=== PATIENT | female | born 1960 | race Caucasian/White ===

== ENCOUNTER → 2021-01-27 14:00 | Outpatient (CLI) | payer BC, SELFPAY | PROVIDERS: Visit Provider Internal Medicine Adolescent Medicine | DX: R35.0 Frequency of micturition (principal) | CPT/HCPCS: 87086 ==

== ENCOUNTER → 2021-11-24 12:15 | Outpatient (CLI) | payer BC, SELFPAY ==
[2021-11-30 17:12] LABS: Chloride 105 mmol/L (98-107)
[2021-11-30 17:13] LABS: Potassium 4.6 mmoL/L (3.5-5.1); Sodium 140 mmol/L (136-145)
[2021-11-30 17:15] LABS: Alanine Aminotransferase 30 U/L (12-78); Albumin Level 4.3 g/dl (3.5-5.0); Albumin/Globulin Ratio 1.5 (1.1-1.8); Alkaline Phosphatase 117 U/L (38-126); Anion Gap 15.6 mEq/L (5-15); Aspartate Amino Transferase 33 U/L (14-36); Bilirubin,Total 0.3 mg/dl (0.2-1.3); Blood Urea Nitrogen 18 mg/dl (7-17); Calcium 9.6 mg/dl (8.4-10.2); Carbon Dioxide 24 mmol/L (22.0-30.0); Estimated Glomerular Filt Rate 86 ml/min (>60); GFR (African American) 104 ML/MIN (>60); Globulin 2.8 g/dL (1.3-3.2); Glucose 121 mg/dl (74-100); Total Protein,Serum 7.1 g/dl (6.3-8.2)
[2021-11-30 19:40] LABS: Triiodothryronine (T3) Uptake 36 % (23.5-40.5)
[2021-11-30 19:41] LABS: Free Thyroxine Index 3.2 ug/dL (5.93-13.13)
[2021-11-30 19:54] LABS: Thyroid Stimulating Hormone 0.94 uIU/mL (0.465-4.68)
== END ==
PROVIDERS: PCP Internal Medicine Adolescent Medicine; Visit Provider Internal Medicine Adolescent Medicine
DX: E03.9 Hypothyroidism, unspecified (principal)
CPT/HCPCS: 80053; 84436; 84443; 84479

== ENCOUNTER → 2021-11-25 08:02 | Outpatient (CLI) | payer BC, SELFPAY ==
[2021-11-24 20:32] LABS: Vitamin B12 314 pg/mL (239-931)
[2021-11-24 21:11] LABS: 25-OH Vitamin D, Total 73.2 ng/mL (30-100)
== END ==
PROVIDERS: PCP Internal Medicine Adolescent Medicine; Referring Provider Internal Medicine Adolescent Medicine; Visit Provider Internal Medicine Adolescent Medicine
DX: E03.9 Hypothyroidism, unspecified (principal); L65.9 Nonscarring hair loss, unspecified
CPT/HCPCS: 82306; 82607

== ENCOUNTER → 2023-01-08 16:52 | Outpatient (CLI) | payer BC, SELFPAY ==
[2023-01-08 16:26] LABS: Basophils % 0.6 % (0.1-2.0); Eosinophils # 0.3 K/mm3 (0.0-0.4); Eosinophils % 3.9 % (0.1-12.0); Hematocrit 44.4 % (37.0-47.0); Hemoglobin 14.2 g/dL (12.2-16.2); Lymphocytes % 26.8 % (10-50); Mean Corpuscular Volume 96.9 fl (81-99); Mean Platelet Volume 9.4 fl (7.4-10.4); Monocytes # 0.5 K/mm3 (0.1-1.0); Monocytes % 6.5 % (1.7-9.3); Neutrophils # 4.6 K/mm3 (1.8-7.8); Neutrophils % 62.3 % (37.0-80.0); Platelet Count 374 K/mm3 (142-424); Red Blood Count 4.58 M/mm3 (4.20-5.40); Red Cell Distribution Width 13.3 % (11.5-17.5); White Blood Count 7.4 K/mm3 (4.8-10.8)
[2023-01-08 16:43] LABS: Alanine Aminotransferase 27 U/L (12-78); Albumin Level 4.3 g/dl (3.5-5.0); Albumin/Globulin Ratio 1.6 (1.1-1.8); Alkaline Phosphatase 108 U/L (38-126); Anion Gap 10.8 mEq/L (5-15); Aspartate Amino Transferase 33 U/L (14-36); Bilirubin,Total 0.4 mg/dl (0.2-1.3); Blood Urea Nitrogen 21 mg/dl (7-17); Calcium 9.3 mg/dl (8.4-10.2); Carbon Dioxide 29 mmol/L (22.0-30.0); Chloride 104 mmol/L (98-107); Estimated Glomerular Filt Rate 85 ml/min (>60); GFR (African American) 103 ML/MIN (>60); Globulin 2.7 g/dL (1.3-3.2); Glucose 97 mg/dl (74-100); Potassium 4.8 mmoL/L (3.5-5.1); Sodium 139 mmol/L (136-145)
[2023-01-08 17:14] LABS: Thyroid Stimulating Hormone 0.16 uIU/mL (0.465-4.68)
== END ==
PROVIDERS: PCP Family Medicine; Visit Provider Family Medicine
DX: E03.9 Hypothyroidism, unspecified (principal); F41.9 Anxiety disorder, unspecified
CPT/HCPCS: 80053; 84443; 85025

== ENCOUNTER → 2023-04-02 13:50 | Outpatient (CLI) | payer BC, SELFPAY | PROVIDERS: PCP Nurse Practitioner Family; Visit Provider Nurse Practitioner Family | DX: R35.0 Frequency of micturition (principal); B96.89 Other specified bacterial agents as the cause of diseases classified elsewhere | CPT/HCPCS: 87086 ==

== ENCOUNTER → 2023-04-24 07:39 | Outpatient (CLI) | payer BC, SELFPAY ==
[2023-04-24 16:44] LABS: C-Reactive Protein 7.5 mg/L (0-4)
[2023-04-24 16:56] LABS: T4 (Thyroxine) 8.1 ug/dl (5.53-11.0); Triiodothryronine (T3) Uptake 37 % (23.5-40.5)
[2023-04-24 17:04] LABS: Erythrocyte Sedimentation Rate 13 mm/hr (0-30)
[2023-04-24 17:05] LABS: Free T4 (Free Thyroxine) 1.44 ng/dl (0.78-2.19)
[2023-04-24 17:10] LABS: Thyroid Stimulating Hormone 0.25 uIU/mL (0.465-4.68)
[2023-04-27 21:20] LABS: Antinuclear Antibodies (ANA) Negative
== END ==
PROVIDERS: PCP Nurse Practitioner Family; Visit Provider Nurse Practitioner Family
DX: E03.9 Hypothyroidism, unspecified (principal); M79.641 Pain in right hand; M79.642 Pain in left hand; M25.541 Pain in joints of right hand; M25.542 Pain in joints of left hand
CPT/HCPCS: 84436; 84439; 84443; 84479; 85651; 86038; 86140

== ENCOUNTER 2023-06-13 09:44 | Outpatient (CLI) | payer BC, SELFPAY ==
[2023-06-13 18:02] LABS: Thyroid Stimulating Hormone 0.65 uIU/mL (0.465-4.68)
== END 2023-06-13 23:59 ==
LOC: LAB.DROPOF 06-14 09:45
PROVIDERS: PCP Nurse Practitioner Family; Visit Provider Family Medicine
DX: E03.9 Hypothyroidism, unspecified (principal)
CPT/HCPCS: 84443

== ENCOUNTER 2023-09-06 16:34 | Outpatient (CLI) | payer BC, SELFPAY ==
[2023-09-06 17:10] LABS: Thyroid Stimulating Hormone 0.48 uIU/mL (0.465-4.68)
== END 2023-09-06 23:59 ==
LOC: LAB.DROPOF 16:35
PROVIDERS: PCP Family Medicine; Visit Provider Family Medicine
DX: E03.9 Hypothyroidism, unspecified (principal)
CPT/HCPCS: 84443

== ENCOUNTER 2023-12-06 10:29 | Outpatient (CLI) | payer BC, SELFPAY ==
[2023-12-06 18:42] LABS: Thyroid Stimulating Hormone 0.87 uIU/mL (0.465-4.68)
== END 2023-12-06 23:59 | disposition home or self-care (01) ==
LOC: LAB.DROPOF 12-07 10:29
PROVIDERS: PCP Nurse Practitioner Family; Visit Provider Nurse Practitioner Family
DX: E03.9 Hypothyroidism, unspecified (principal)
CPT/HCPCS: 84443

== ENCOUNTER 2024-05-29 09:03 | Outpatient (CLI) | payer BC, SELFPAY ==
[2024-05-29 16:51] LABS: White Blood Count 9.1 K/mm3 (4.8-10.8)
[2024-05-29 16:52] LABS: Hematocrit 42.6 % (37.0-47.0); Lymphocytes % 21.4 % (10-50); Mean Corpuscular HGB Conc 32.9 g/dL (31.8-35.4); Mean Corpuscular Hemoglobin 31.5 pg (27.0-31.2); Mean Corpuscular Volume 95.7 fl (81-99); Mean Platelet Volume 10.1 fl (7.4-10.4); Neutrophils % 68.3 % (37.0-80.0); Platelet Count 334 K/mm3 (142-424); Red Blood Count 4.45 M/mm3 (4.20-5.40); Red Cell Distribution Width 13.7 % (11.5-17.5)
[2024-05-29 16:53] LABS: Basophils # 0.1 K/mm3 (0-0.2); Basophils % 0.8 % (0.1-2.0); Eosinophils # 0.4 K/mm3 (0.0-0.4); Eosinophils % 4.5 % (0.1-12.0); Lymphocytes # 1.9 K/mm3 (0.7-4.5); Monocytes # 0.4 K/mm3 (0.1-1.0); Monocytes % 4.8 % (1.7-9.3); Neutrophils # 6.2 K/mm3 (1.8-7.8)
[2024-05-29 17:30] LABS: Albumin Level 4.4 g/dl (3.5-5.0); Chloride 112 mmol/L (98-107); Potassium 4.4 mmoL/L (3.5-5.1); Sodium 135 mmol/L (136-145)
[2024-05-29 17:33] LABS: Alanine Aminotransferase 24 U/L (12-78); Albumin/Globulin Ratio 1.8 (1.1-1.8); Alkaline Phosphatase 111 U/L (38-126); Anion Gap 10.4 mEq/L (5-15); Aspartate Amino Transferase 34 U/L (14-36); Bilirubin,Total 0.6 mg/dl (0.2-1.3); Blood Urea Nitrogen 17 mg/dl (7-17); Carbon Dioxide 17 mmol/L (22.0-30.0); Cholesterol 255 mg/dl (140-200); Estimated Glomerular Filt Rate 64 ml/min (>60); GFR (African American) 77 ML/MIN (>60); Globulin 2.5 g/dL (1.3-3.2); Total Protein,Serum 6.9 g/dl (6.3-8.2); Triglycerides 106 mg/dl (30-150); VLDL Cholesterol 21 mg/dL (0-40)
[2024-05-29 17:34] LABS: Calcium 9.5 mg/dl (8.4-10.2); Chol/HDL Ratio 2.7 (1-3.5); Glucose 131 mg/dl (74-100); HDL Cholesterol 96 mg/dl (40-60)
[2024-05-29 17:45] LABS: Direct LDL Cholesterol 138.92 mg/dL (100-129)
[2024-05-29 18:03] LABS: Thyroid Stimulating Hormone 0.97 uIU/mL (0.465-4.68)
[2024-05-29 18:14] LABS: HIV Combo NEGATIVE (Negative)
[2024-05-30 10:24] LABS: HCV Ab Non Reactive (Non Reactive)
[2024-05-30 10:36] LABS: Hemoglobin A1C 5.1 % (4.0-6.0)
== END 2024-05-29 23:59 | disposition home or self-care (01) ==
LOC: LAB.DROPOF 05-30 09:31
PROVIDERS: PCP Family Medicine; Visit Provider Family Medicine
DX: E03.9 Hypothyroidism, unspecified (principal); Z11.59 Encounter for screening for other viral diseases; R73.09 Other abnormal glucose
CPT/HCPCS: 80050; 80053; 80061; 83036; 84443; 85025; 86803; 87389

== ENCOUNTER 2024-11-21 11:25 | Outpatient (CLI) | payer BC, SELFPAY ==
--- OUTSIDE RECORDS SUMMARY | 2024-11-24 11:28 | XMS_ITS ---
Author Organization [facility] Address [address] [id number] Care Team Providers Care Communications Tower Technician Name Role Phone Edwina Su Michelle PAYNE Primary Care Provider [phone] Active Problems Problem Noted Date Diagnosed Date Hiatal hernia with gastroesophageal reflux 12/31 Hiatal hernia 10/31/2023 Allergic rhinitis due to allergen 08/24/2023 Anxiety 08/24/2023 Gastroesophageal reflux disease 08/24/2023 Hypothyroidism 07/18/2023 Irritation of vulva 10/09/2022 Non-Hodgkin's lymphoma 06/11/2004 Overview (08/24/2023): remission Current Treatment and Therapy Plans No current plan information found. Past Treatment and Therapy Plans No past plan information found. Lifetime Dose Tracking * Chemical Lifetime Dose Automatic Entry Manual Entr y Fluoro Time 6.6 minutes 6.6 minutes 0 minutes Air Kerma 68.4 mGy 68.4 mGy 0 mGy
--- OUTSIDE RECORDS SUMMARY | 2024-11-24 11:28 | XMS_ITS | Continuity of Care Document ---
Author Organization [facility] Address [address] [place] [id number] Assessment No assessment recorded. Plan of Treatment Reminders Order Date Submit Date Provider Last Modified By Organization Details Last Modified Time Details Appointments FOLLOW UP [facility] 2024 08:40A M RADHA SCHULTZ NP Not available Not available Not available Lab surgic al pathol ogy study 2024 025 [facility], [address] [place] [address], [phone], 10/09/2024 10:50:03 Referral None record ed. Procedures None record ed. Surgeries None record ed. Imaging None record ed. Medication Orders None record ed. Patient TargetsNo targets recorded. Patient InstructionsNo instructions recorded. Reason for Referral None Reported. Problems Name Problem SNOMED Code Status Onset Date Resolution Date Notes Provider Name and Address Organization Details Recorded Time Hypothyroidism 74620526 Active 2023 Vibha Proctor [facility] 09:33:22 Notes:Non-hagkins lymphoma 2 006 Problem Notes None recorded. Procedures Surgical History Date Name Laterality Status Provider Name and Address Organization Details Recorded Time 10/09/19 25 DAK - Cryo AK completed Vibha Proctor [facility] 10/08/2024 08:44:30 10/09/19 25 DAK - Biopsy, Tangential completed Vibha Proctor [facility] 10/08/2024 08:44:27 04/16/20 24 DAK - ED&C; trunk,arm,leg completed Bertha Guan [facility] 04/16/2024 10:41:02 02/13/20 24 Biopsy Skin Lesion; Tangential completed [facility] 02/13/2024 09:46:57 02/13/20 24 Destruction Premalignant Lesion(s) completed [facility] 02/13/2024 09:47:47 02/13/20 24 Destruction BN Lesions completed [facility] 02/13/2024 09:47:24 07/18/19 24 Biopsy Skin Lesion; Tangential completed [facility] 07/18/2023 09:56:32 07/18/19 24 Destruction Premalignant Lesion(s) completed [facility] 07/18/2023 09:58:25 hernia repair completed Maria Dolores Sweet [facility] 10/08/2024 08:01:47 Imaging Results None recorded. Procedure Notes None recorded. Medical Equipment None Reported. Allergies Allergen ID Allergen Name Allergen Category Reaction Reaction Severity Criticality Documentation Date Start Date Code Code System Note Provider Name and Address Organization Details Recorded Time 905906 Substance with sulfonami de structure and antibacte rial mechanism of action (substanc e) medicatio n Not available Not available Not available 02/13/2024 79595 8003 SNOMED Vibha Hitesh [facility] 09:27:31 Medications Name Sig Start Date Stop Date Status Note LastModified by Organization Details LastModified Time Prozac active Not Available Not Availa ble Not Available Synthroid 2023 completed Not Available Not Available Not Available Claritin-D 2023 completed Not Available Not Available Not Available Vitals None Recorded Social History Question Answer Notes LastModified by Organizat ion Details LastModified Time Tobacco Smoking Status Never [facility]oker [facility] 09:34:22 Sunscreen Use? No [email or web address] Informatio n not available 07/18/2023 Tanning Bed Use Yes Current User [email or web address] Information not available 07/18/2023 Are You Or Trying To Become ? No [email or web address] Information not available 07/18/2023 Are You On Control? No [email or web address] Information not available 07/18/2023 Are You ? No [email or web address] Information not available 07/18/2023 Sex: Unknown Functional Status Question Answer Note LastModified by Organizat ion Details LastModified Time What is your level of alcohol consumption? Moderate about 2 every evening [email or web address] Information not available 07/18/2023 Mental Status None recorded. Family History Relationship Description Onset Age of this Age Resolved Age Notes LastModified by Organization Details LastModified Time Father No current problems or disability Not available 07/18 09:34:01 Mother No current problems or disability [email or web address] Not available 07/18 09:34:02 Medical History Condition Response Skin Cancer Y Basal Cell Carcinoma Y Melanoma Y Gynecological HistoryNo gynecological history recorded. Obstetrics History GPAL:G 0 P 0 0 0 0 Past Encounters Encounter ID Performer Location Encounter Start Date Encounter Closed Date Diagnosis/Indication Diagnosis SNOMED-CT Code Diagnosis ICD10 Code Diagnosis Note [id number] TONE Victoria APRN [address] [id number] 10/08/2024 07:54:45 10/08/2024 08:53:44 History of malignant neoplasm of skin 205802648 Z85.828 Most recent NMSC 02/2024 - No evidence of recurrence today- Call with any worrisome lesions or if treated lesions return- Return at regular intervals for skin exam as recommende d Multiple b enign melanocytic nevi 016964618 D22.5 - Benign moles seen on exam today - SPF 30 or higher broad-spec trum sunscreen recommende d with re-applica tion every 2 hours - Discussed sun protection measures, including wide-brimm ed hat, sun-protec tive clothing, and avoidance of sun during peak hours of 10am-4pm - Avoid tanning beds as these can increase the chances of all 3 types of skin cancer - Instructed to monitor for changes and to call us for appointmen t with any changing or worrisome lesions Seborrheic keratosis [id number] L82.1 - Benign overgrowth s of skin - Hereditary Senile angioma 8503983 I 78.1 - Benign blood vessel growths - Hereditary Solar lentigo 83414303 L 81.4 - Benign brown spots - Sun-induce d History of Malignant melanoma 061596100 Z85.820 last MM - 2021 Patient is still an avid tanning bed user. Reiterate the increase risk of getting another MM since she has already had one. Again encouraged her to stop using. Reiterated need for annual eye exams, sun protection , regular self-exam, and skin exams for 1st degree relatives as melanoma. Can have a genetic tendency. Alert provider to any new or changing symptoms so you may be evaluated for internal spread of melanoma. Call if any new spots you are worried about. Denies unexplaine d weight loss, night sweats, vision change, severe headaches, and SOB. Neoplasm o f uncertain behavior of skin 49078042 D48.5 Recommend blade biopsy. Risks, benefit, and procedure discussed with patient. Consent obtained. Discussed the biopsy only takes the top layer of the lesion for testing. This does NOT treat the skin cancer if it is one. Advised they would need to return for more treatment given the type and depth of the skin cancer when the results come in. Multiple a ctinic keratoses [id number] L57.0 Actinic keratoses are precancero us lesions that may progress to squamous cell carcinoma if untreated. UV light and genetics may increase risk. Treated lesions should blister, scab over, and heal within a few weeks. If treated lesion(s) does not resolve within 1-2 months, patient agrees to follow up for re-evaluat ion. Health Concerns Section Related Observation LastModified by Organization Detai ls LastModified Time None Recorded Concern Status LastModified by Organization Details LastModified Time None Recorded Payers Encounter Date Sequence Insurance Name Policy Number Policy Patel Covered Member ID Patel Member ID Guarantor Name 10/08/2024 1 [employer] [id number] 1 No Rankin [id number] AB No Rankin Notes Date Note Type Note Provider Name and Address Organization Details Recorded Time 10/08/2024 text/html Here for a full body skin examination - last skin check: 02/2024 - history of skin cancer - MM and BCC - last skin cancer was in: 02/2024 - spots of concern today: Bilateral lower legs - Is pt still going to the tanning bed? 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, [phone], [facility] 10/09/2024 10:46:58 OBGyn Episode No OBEpisode recorded.
--- OUTSIDE RECORDS SUMMARY | 2024-11-24 11:28 | XMS_ITS | Data Portability ---
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 Reviewed calcium needs, exercise, and prevention of osteoporosis . Periodic colonoscopy screening recommended . Reviewed normal menopause and menopausal symptoms . Mammogram recommended yearly . Not available 08/22/2021 09:03:12 10/09/2022 10/09/2022 BSE reviewed and recommended . Reviewed calcium needs, exercise, and prevention of osteoporosis . Periodic colonoscopy screening recommended . Reviewed normal menopause and menopausal symptoms . Mammogram recommended yearly . [email or web address] Not available 10/09/2022 16:30:05 Plan of Treatment Reminders Order Date Submit Date Provider Last Modified By Organization Details Last Modified Time Details Appointments None recorded. Lab culture, urine 2023 024 ANNEL [facility], [address], [place], [address], 4 16:14:15 urinalysis, dipstick 2023 024 [facility], [address] [place] [address] , [place], [address], 4 14:31:57 HSV (1+2) DNA, qual, PCR, unspecified specimen 2023 024 ANNEL [facility], [address], [address], [place], [address], 4 16:14:14 cytology report, thin prep, smear or scraping, cervical or vaginal 2022 023 ANNEL [facility], [address], [address], [place], [address], 3 12:09:13 vitamin B12 + folate, serum or blood 2021 022 ANNEL [facility], [address], [address], [place], [address], 2 16:11:30 ferritin, serum or plasma 2021 022 ANNEL [facility], [address], [address], [place], [address], 2 16:11:32 vitamin D, 25-hydroxy, total, serum 2021 022 ANNEL [facility], [address], [address], [place], [address], 2 16:11:31 testosteron e, free + total, serum 2021 022 ANNEL [facility], [address], [address], [place], [address], 2 16:11:30 CBC w/ auto diff 2021 022 ANNEL [facility], [address], [address], [place], [address], 2 16:11:29 iron + total iron-bindin g capacity (TIBC), serum 2021 022 ANNEL [facility], [address], [address], [place], [address], 2 16:11:29 TSH + free T4, serum 2021 022 ANNEL [facility], [address], [address], [place], [address], 16:11:28 methylmalon ate, QN, serum or plasma 2021 [facility], [address], [address], [place], [address], 16:11:31 pap, IG + HPV 2021 [place] [facility], [address], [address], [place], [address], 12:12:30 Referral None recorded. Procedures None recorded. Surgeries None recorded. Imaging None recorded. Medication Orders fluconazole 150 mg tablet [address], [address], 4 14:31:48 lidocaine 5 % topical ointment [address], [address], 4 14:31:48 valacyclovi r 500 mg tablet [address], [address], 4 11:15:35 clobetasol 0.05 % topical ointment 2021 [email or web address] [id number] [employer], [address] [place] [address], [id number], 3 16:21:09 Patient TargetsNo targets recorded. Patient Instructions Encounter Date Encounter Id Patient Instructions Last Modified By Organization Details Last Modified Time 08/22/2021 [id number] medical record request* - Please send a copy of pt's last colonoscopy and recommendations ANNEL Not available 08/23/2021 13:25:06 A healthy lifestyle: care instructions [email or web address] Not available 08/22/2021 09:09:16 11/30/2021 [id number] follow up colin sousa lab work results [email or web address] Not available 11/30/2021 12:23:51 02/25/2024 [id number] Continue Macrobi d and Metrogel Start valacyclovir and lidocaine cream. Will call with results. [email or web address] Not available 02/25/2024 14:35:14 Reason for Referral None Reported. Results Created Date Observation Date Name Description Value Unit Range Abnormal Flag Note LastModifiedBy Organization Detail LastModifiedTime 08/23/1908/24/2021 IGP, APT HPV,R FX 16/18 ,45 HPV aptima Negati ve negati ve This nucle ic acid ampli ficat ion test detec ts fourt een high- risk HPV types (16,1 8,31, 33,35 ,39,4 5,51, 52,56 ,58,5 9,66, 68) witho ut diffe renti ation . Not Available [facility] ([facility]) [address] [facility], [place], [address], 08/26/2021 12:12:30 08/23/1908/26/2021 IGP, APT HPV,R FX 16/18 ,45 diagnosis: Commen t NEGAT REJI FOR INTRA EPITH ELIAL LESIO N OR ANOOP ARAGON . Not Available [facility] ([facility]) [address] [facility], [place], [address], 08/26/2021 12:12:30 08/23/1908/26/2021 IGP, APT HPV,R FX 16/18 ,45 specimen adequacy: Commen t Satis facto ry for evalu ation . No endoc ervic al compo nent is ident ified . Not Available [facility] ([facility]) [address] [facility], [place], [address], 08/26/2021 12:12:30 08/23/1908/26/2021 IGP, APT HPV,R FX 16/18 ,45 clinician provided ICD10: Coby gaines Z12.4 Z11.3 Z01.4 19 Not Available [facility] ([facility]) [address] [place], [address], 08/26/2021 12:12:30 08/23/19 22 08/26/2021 IGP, APT HPV,R FX 16/18 ,45 performed by: Ashley Rushing Not Available [facility] ([facility]) [address] [place], [address], 08/26/2021 12:12:30 08/23/19 22 08/26/2021 IGP, APT HPV,R FX 16/18 ,45 . . Not Available [facility] ([facility]) [address] [place], [address], 08/26/2021 12:12:30 08/23/19 22 08/26/2021 IGP, APT HPV,R FX 16/18 ,45 note: Coby gaines The Pap smear is a scree roman test desig edison to aid in the detec tion of lottie ligna nt and malig nant condi tions of the uteri ne cervi x. It is not a diagn ostic proce dure and shoul d not be used as the sole means of detec ting cervi tonia cance r. Both false -posi tive and false -nega tive repor ts do occur . Not Available [facility] ([facility]) [address] [place], [address], 08/26/2021 12:12:30 08/23/19 22 08/26/2021 IGP, APT HPV,R FX 16/18 ,45 test methodology: Coby gaines This liqui d based ThinP rep(R ) pap test was scree edison with the use of an image guide melo martell. Not Available [facility] ([facility]) [address] [place], [address], 08/26/2021 12:12:30 12/01/19 22 12/01/2021 TSH+F REE T4 TSH 1.000 uIU/m L 0.450- 4.500 Not Available [facility] ([facility]) [address] [place], [address], 2021 16:11:28 12/01/19 22 12/01/2021 TSH+F REE T4 T4,free(dire ct) 1.27 NG/dL 0.82-1 .77 Not Available [facility] ([facility]) [address] [place], [address], 2021 16:11:28 12/01/19 22 12/01/2021 CBC WITH DIFFE RENTI AL/PL ATELE T WBC 8.3 x10e3 /uL 3.4-10 .8 Not Available [facility] ([facility]) [address] [place], [address], 2021 16:11:29 12/01/19 22 12/01/2021 CBC WITH DIFFE RENTI AL/PL ATELE T RBC 4.48 x10e6 /uL 3.77-5 .28 Not Available [facility] ([facility]) [address] [place], [address], 2021 16:11:29 12/01/19 22 12/01/2021 CBC WITH DIFFE RENTI AL/PL ATELE T hemoglobin 14.2 g/dL 11.1-1 5.9 Not Available [facility] ([facility]) [address] [place], [address], 2021 16:11:29 12/01/19 22 12/01/2021 CBC WITH DIFFE RENTI AL/PL ATELE T hematocrit 41.1 % 34.0-4 6.6 Not Available [facility] ([facility]) [address] [place], [address], 2021 16:11:29 12/01/19 22 12/01/2021 CBC WITH DIFFE RENTI AL/PL ATELE T MCV 92 fL 79-97 Not Available [facility] ([facility]) [address] [facility], [place], [address], 2021 16:11:29 12/01/19 22 12/01/2021 CBC WITH DIFFE RENTI AL/PL ATELE T MCH 31.7 pg 26.6-3 3.0 Not Available [facility] ([facility]) [address] [place], [address], 2021 16:11:29 12/01/19 22 12/01/2021 CBC WITH DIFFE RENTI AL/PL ATELE T MCHC 34.5 g/dL 31.5-3 5.7 Not Available [facility] ([facility]) [address] [facility], [place], [address], 2021 16:11:29 12/01/19 22 12/01/2021 CBC WITH DIFFE RENTI AL/PL ATELE T RDW 13.5 % 11.7-1 5.4 Not Available [facility] ([facility]) [address] [place], [address], 2021 16:11:29 12/01/19 22 12/01/2021 CBC WITH DIFFE RENTI AL/PL ATELE T platelets 338 x10e3 /uL 150-45 0 Not Available [facility] ([facility]) [address] [place], [address], 2021 16:11:29 12/01/19 22 12/01/2021 CBC WITH DIFFE RENTI AL/PL ATELE T neutrophils 64 % not estab. Not Available [facility] ([facility]) [address] [place], [address], 2021 16:11:29 12/01/19 22 12/01/2021 CBC WITH DIFFE RENTI AL/PL ATELE T lymphs 25 % not estab. Not Available [facility] ([facility]) [address] [facility], [place], [address], 2021 16:11:29 12/01/19 22 12/01/2021 CBC WITH DIFFE RENTI AL/PL ATELE T monocytes 6 % not estab. Not Available [facility] ([facility]) [address] [facility], [place], [address], 2021 16:11:29 12/01/19 22 12/01/2021 CBC WITH DIFFE RENTI AL/PL ATELE T eos 4 % not estab. Not Available [facility] ([facility]) [address] [facility], [place], [address], 2021 16:11:29 12/01/19 22 12/01/2021 CBC WITH DIFFE RENTI AL/PL ATELE T basos 1 % not estab. Not Available [facility] ([facility]) [address] [place], [address], 2021 16:11:29 12/01/19 22 12/01/2021 CBC WITH DIFFE RENTI AL/PL ATELE T immature cells CONVEX GRINDER Not Available [facility] ([facility]) [address] [place], [address], 2021 16:11:29 12/01/19 22 12/01/2021 CBC WITH DIFFE RENTI AL/PL ATELE T neutrophils (absolute) 5.3 x10e3 /uL 1.4-7. 0 Not Available [facility] ([facility]) [address] [place], [address], 2021 16:11:29 12/01/19 22 12/01/2021 CBC WITH DIFFE RENTI AL/PL ATELE T lymphs (absolute) 2.1 x10e3 /uL 0.7-3. 1 Not Available [facility] ([facility]) [address] [facility], [place], [address], 2021 16:11:29 12/01/19 22 12/01/2021 CBC WITH DIFFE RENTI AL/PL ATELE T monocytes(ab solute) 0.5 x10e3 /uL 0.1-0. 9 Not Available [facility] ([facility]) [address] [facility], [place], [address], 2021 16:11:29 12/01/19 22 12/01/2021 CBC WITH DIFFE RENTI AL/PL ATELE T eos (absolute) 0.3 x10e3 /uL 0.0-0. 4 Not Available [facility] ([facility]) [address] [place], [address], 2021 16:11:29 12/01/19 22 12/01/2021 CBC WITH DIFFE RENTI AL/PL ATELE T baso (absolute) 0.1 x10e3 /uL 0.0-0. 2 Not Available [facility] ([facility]) [address] [facility], [place], [address], 2021 16:11:29 12/01/19 22 12/01/2021 CBC WITH DIFFE RENTI AL/PL ATELE T immature granulocytes 0 % not estab. Not Available [facility] ([facility]) [address] [place], [address], 2021 16:11:29 12/01/19 22 12/01/2021 CBC WITH DIFFE RENTI AL/PL ATELE T immature grans (abs) 0.0 x10e3 /uL 0.0-0. 1 Not Available [facility] ([facility]) [address] [place], [address], 2021 16:11:29 12/01/19 22 12/01/2021 CBC WITH DIFFE RENTI AL/PL ATELE T NRBC CONVEX GRINDER Not Available [facility] ([facility]) [address] [place], [address], 2021 16:11:29 12/01/19 22 12/01/2021 CBC WITH DIFFE RENTI AL/PL ATELE T hematology comments: CONVEX GRINDER Not Available [facility] ([facility]) [address] [facility], [place], [address], 2021 16:11:29 12/01/19 22 12/01/2021 IRON AND TIBC iron bind.cap.(TI BC) 346 ug/dL 250-45 0 Not Available [facility] ([facility]) [address] [place], [address], 2021 16:11:29 12/01/19 22 12/01/2021 IRON AND TIBC UIBC 269 ug/dL 131-42 5 Not Available [facility] ([facility]) [address] [place], [address], 2021 16:11:29 12/01/19 22 12/01/2021 IRON AND TIBC iron 77 ug/dL 27-159 Not Available [facility] ([facility]) [address] [place], [address], 2021 16:11:29 12/01/19 22 12/01/2021 IRON AND TIBC iron saturation 22 % 15-55 Not Available [facility] ([facility]) [address] [place], [address], 2021 16:11:29 12/01/19 22 12/01/2021 VITAM IN B12 AND FOLAT E vitamin B12 330 pg/mL 232-12 45 Not Available [facility] ([facility]) [address] [place], [address], 2021 16:11:30 12/01/19 22 12/01/2021 VITAM IN B12 AND FOLAT E folate (folic acid), serum >20.0 NG/mL >3.0 A serum folat e kenneth ntrat ion of less than 3.1 ng/mL is consi dered to repre sent clini tonia defic iency . Not Available [facility] ([facility]) [address] [facility], [place], [address], 2021 16:11:30 12/01/19 22 12/01/2021 TESTO STERO NE,FR EE AND TOTAL testosterone 10 NG/dL 4-50 Not Available [facility] ([facility]) [address] [facility], [place], [address], 2021 16:11:30 12/01/19 22 12/03/2021 TESTO STERO NE,FR EE AND TOTAL free testosterone (direct) 0.8 pg/mL 0.0-4. 2 Not Available [facility] ([facility]) [address] [facility], [place], [address], 2021 16:11:30 12/01/19 22 12/01/2021 VITAM IN D, 25-HY DROXY vitamin D, 25-hydroxy 92.7 NG/mL 30.0-1 00.0 Vitam in D defic iency has been defin ed by the Insti tute of Medic ine and an Endoc rine Socie ty pract ice guide line as a level of serum 25-OH vitam in D less than 20 ng/mL (1,2) . The Endoc rine Socie ty went on to furth er defin e vitam in D insuf ficie ncy as a level betwe en 21 and 29 ng/mL (2). 1. IOM (Inst itute of Medic ine). 2010. Dieta ry refer ence intmaribell es for calci um and D. Yamini christy [place]: [facility] . 2. Lakesha rodas MF, Adrien guaman [place], Georgette off-F summer i LIANG, et al. Evalu ation , treat ment, and preve ntion of vitam in D defic iency : an Endoc rine Socie ty clini tonia pract ice guide line. JCEM. 2010; 96(7) :1911 -30. Not Available [facility] ([facility]) [address] [place], [address], 2021 16:11:31 12/01/19 22 2021 METHY LMALO DREW ACID, SERUM methylmaloni c acid, serum 347 nmol/ L 0-378 Not Available [facility] ([facility]) [address] [place], [address], 2021 16:11:31 12/01/19 22 12/01/2021 FARA TIN ferritin 50 NG/mL 15-150 Not Available [facility] ([facility]) [address] [place], [address], 2021 16:11:32 10/10/19 23 10/16/2022 IGP,R FX APTIM A HPV ALL PTH diagnosis: Commen t NEGAT REJI FOR INTRA EPITH ELIAL LESIO N OR ANOOP ARAGON . Not Available [facility] ([facility]) [address] [place], [address], 10/16/2022 12:09:13 10/10/19 23 10/16/2022 IGP,R FX APTIM A HPV ALL PTH specimen adequacy: Commen t Satis facto ry for evalu ation . Endoc ervic al and/o r squam ous metap lasti c cells (endo cervi tonia compo nent) are prese nt. Not Available [facility] ([facility]) [address] [place], [address], 10/16/2022 12:09:13 10/10/19 23 10/16/2022 IGP,R FX APTIM A HPV ALL PTH clinician provided ICD10: Coby gaines Z12.4 Z11.3 Z01.4 19 Not Available [facility] ([facility]) [address] [place], [address], 10/16/2022 12:09:13 10/10/19 23 10/16/2022 IGP,R FX APTIM A HPV ALL PTH performed by: Ashley Rand rd (ASCP ) Not Available [facility] ([facility]) [address] [place], [address], 10/16/2022 12:09:13 10/10/1910/16/2022 IGP,R FX APTIM A HPV ALL PTH . . Not Available [facility] ([facility]) [address] [facility], [place], [address], 10/16/2022 12:09:13 10/10/1910/16/2022 IGP,R FX APTIM A HPV ALL PTH note: Coby gaines The Pap smear is a scree roman test desig edison to aid in the detec tion of lottie ligna nt and malig nant condi tions of the uteri ne cervi x. It is not a diagn ostic proce dure and shoul d not be used as the sole means of detec ting cervi tonia cance r. Both false -posi tive and false -nega tive repor ts do occur . Not Available [facility] ([facility]) [address] [place], [address], 10/16/2022 12:09:13 10/10/1910/16/2022 IGP,R FX APTIM A HPV ALL PTH test methodology: Coby gaines This liqui d based ThinP rep(R ) pap test was scree edison with the use of an image guide melo systgrant martell. Not Available [facility] ([facility]) [address] [place], [address], 10/16/2022 12:09:13 10/10/19 23 10/16/2022 IGP,R FX APTIM A HPV ALL PTH . Commen t The HPV DNA refle x crite alison were not met with this speci men resul t there fore, no HPV testi ng was perfo rmed. Not Available [facility] ([facility]) [address] [facility], [place], [address], 10/16/2022 12:09:13 02/25/20 24 02/28/2024 HSV MEG hsv 1 MEG Negati ve negati ve Not Available [facility] ([facility]) [address] [facility], [place], [address], 02/28/2024 16:14:14 02/25/20 24 02/28/2024 HSV MEG hsv 2 MEG Negati ve negati ve Not Available [facility] ([facility]) [address] [facility], [place], [address], 02/28/2024 16:14:14 02/25/20 24 02/28/2024 URINE CULTU RE, ROUTI NE urine culture, routine Final report abnormal Not Available [facility] ([facility]) [address] [facility], [place], [address], 02/28/2024 16:14:15 02/25/20 24 02/28/2024 URINE CULTU RE, ROUTI NE result 1 Entero coccus faecal is abnormal For Enter ococc us speci es, amino glyco sides (exce pt for high- level resis tance scree roman) , cepha lospo rins, clind amyci n, and trime thopr im-carter lfame thoxa zole are not effec tive clini manuel . (CLSI , M100- S26, 2016) 10,00 0-25, 000 colon y formi ng units per mL Note: this isola te is vanco mycin -susc eptib le. This infor matio n is provi ded for epide miolo gic purpo ses only: vanco mycin is not among the antib iotic s recom messi d for thera py of urina ry tract infec tions cause d by Enter ococc us. Not Available [facility] ([facility]) [address] [facility], [place], [address], 02/28/2024 16:14:15 02/25/20 24 02/28/2024 URINE CULTU RE, ROUTI NE antimicrobia l susceptibili ty Commen t S = Susce ptibl e; I = Inter media te; R = Resis tant P = Posit reji; N = Negat reji MICS are expre ssed in micro grams per mL Antib iotic RSLT# 1 RSLT# 2 RSLT# 3 RSLT# 4 Cipro floxa sol S<=0. 5 Levof loxac in S =1 Nitro furan toin S<=16 Penic illin S =4 Tetra cycli ne R>=16 Vanco mycin S =2 Not Available [facility] ([facility]) [address] [facility], [place], [address], 02/28/2024 16:14:15 02/25/20 24 02/25/2024 urina lysis , dipst ick Leukocytes Negati ve Not Available [facility] [address] [place] [address] , [place], [address], 02/25/2024 14:17:25 02/25/20 24 02/25/2024 urina lysis , dipst ick Nitrite negati ve Not Available [facility] [address] [place] [address] , [place], [address], 02/25/2024 14:17:25 02/25/20 24 02/25/2024 urina lysis , dipst ick Urobilinogen .2 Not Available [facility] [address] [place] [address] , [place], [address], 02/25/2024 14:17:25 02/25/20 24 02/25/2024 urina lysis , dipst ick Protein Negati ve Not Available [facility] [address] [place] [address] , [place], [address], 02/25/2024 14:17:25 02/25/20 24 02/25/2024 urina lysis , dipst ick pH 5.0 Not Available [facility] , [place], [address], 02/25/2024 14:17:25 02/25/20 24 02/25/2024 urina lysis , dipst ick Blood Negati ve Not Available [facility] , [place], [address], 02/25/2024 14:17:25 02/25/20 24 02/25/2024 urina lysis , dipst ick Specific [place] 1.010 Not Available [facility] [address] [place] [address] , [place], [address], 02/25/2024 14:17:25 02/25/20 24 02/25/2024 urina lysis , dipst ick Ketone Negati ve Not Available [facility]/[address] , [place], [address], 02/25/2024 14:17:25 02/25/20 24 02/25/2024 urina lysis , dipst ick Bilirubin Negati ve Not Available [facility] [address] [place] [address] , [place], [address], 02/25/2024 14:17:25 02/25/20 24 02/25/2024 urina lysis , dipst ick Glucose Negati ve Not Available [facility] [address] [place] [address] , [place], [address], 02/25/2024 14:17:25 02/25/20 24 02/25/2024 urina lysis , dipst ick Appearance Clear Not Available [facility] [address] [place] [address] , [place], [address], 02/25/2024 14:17:25 02/25/20 24 02/25/2024 urina lysis , dipst ick Color Pale Yellow Not Available [facility] [address] [place] [address] , [place], [address], 02/25/2024 14:17:25 Result Notes None recorded. Problems Name Problem SNOMED Code Status Onset Date Resolution Date Notes Provider Name and Address Organization Details Recorded Time Family history of breast cancer 725220949 Active 2016 Sister dx @ age 45 Mae sharif [place] - [facility] 3 16:21:52 Non-Hodgk in's lymphoma (clinical ) 760961111 Active 2004 remission LLOYD [place] - [facility] 3 16:22:18 Vulval irritatio n 010896395 Active 2022 LLOYD March - [facility] 4 14:11:18 Lesion of vulva 120526480 Active 2023 Radha Rosales APRN [address], [place], [address] , [place] - [facility] 4 14:29:32 Dysuria 84376877 Active 2023 Radha Rosales APRN [address], [place], [address] , [place] - [facility] 4 14:34:34 Problem Notes None recorded. Procedures Surgical History Date Name Laterality Status Provider Name and Address Organization Details Recorded Time 10/09 Date of Last Pap Smear completed Radha Rosales APRN [address], [place], [address], [place] - [facility] 3 12:57:09 05/14 excision of melanoma completed Mae DESAI - [facility] 2 08:47:46 04/28 Shave Biopsy trunk, arms, or legs completed My Hutchinson [employer] [address], [place], [address], [place] - [facility] 1 10:02:09 04/12 Suture/Staple removal completed My Hutchinson [employer]OURCE ADVIS[employer] [address], [place], [address], [place] [facility] 1 12:43:20 03/29 Punch Biopsy completed My Hutchinson, [employer]OURCE ADVISER [address], [place], [address], [place] [facility] 1 10:42:29 12/08 Shave Biopsy trunk, arms, or legs completed My Hutchinson H[employer] RESOURCE ADVISER [address], [place], [address], [place] [facility] 0 11:01:32 05/28 Date of Last Mammogram completed Radhaalvaro Rosales, [employer] ADVIS[employer] [address], [place], [address], [place] - [facility] 8 17:14:55 04/03 Suture/Staple removal completed My Hutchinson [employer]OURCE ADVISER [address], [place], [address], [place] [facility] 8 11:25:40 04/03 Cryosurgery Dermatology completed My hilton, [employer] ADVISER [address], [place], [address], [place] [facility] 8 11:26:08 03/13 Punch Biopsies, Multiple completed My Sadler ite, [employer] ADVISER [address], [place], [address], [place] [facility] 8 17:01:44 06/11 Breast Augmentation completed Mae Murphy [place] - [facility] 3 16:24:24 12/19 Date of Last Colonoscopy completed Agata Murphy [place] - [facility] 3 16:26:19 Cholecystectomy, laparoscopic completed Crystal Hemant [place] - [facility] 6 14:15:35 Removal of lymph nod es neck completed Crystal Hemant [place] - [facility] 6 14:16:05 Tubal Ligation completed Crystal Marcos [place] - [facility] 6 14:16:17 esophagogastroduodenoscopy completed Mae Murphy [place] - [facility] 4 14:14:25 hernia repair completed Mae Murphy [facility] 4 14:14:35 Imaging Results None recorded. Procedure Notes None recorded. Medical Equipment None Reported. Allergies No known drug allergies Medications Name Sig Start Date Stop Date Status Note LastModified by Organization Details LastModified Time eq allergy relf d 10-240mg tab TAKE 1 TABLET BY MOUTH ONCE DAILY FOR 90 DAYS active Not Available Not Available No t Available fluoxetin e 40 mg capsule TAKE 1 CAPSULE BY MOUTH ONCE DAILY FOR 90 DAYS active Not Available Not Available No t Available ketoconaz ole 2 % shampoo APPLY ONE APPLICAT ION TO THE SCALP EVERY OTHER DAY, LET SIT FOR 5-10 MINUTES BEFORE RINSING 02/24 completed Not Available Not Available Not Available azithromy sol 250 mg tablet TAKE 2 TABLETS ON THE FIRST DAY, THEN TAKE 1 TABLET EACH DAY ON THE NEXT 4 DAYS. active Not Available Not Available No t Available fluconazo le 150 mg tablet TAKE ONE (1) TABLET EVERY 72 HOURS BY ORAL ROUTE. active Not Available Not Available No t Available hydrocodo ne 5 mg-acetam inophen 325 mg tablet TAKE 1 TO 2 TABLETS EVERY 6 HOURS NEEDED FOR PAIN 08/22 completed Not Available Not Available Not Available metronida zole 0.75 % (37.5 mg/5 gram) vaginal gel INSERT 1 APPLICAT ORFUL VAGINALL Y TWICE DAILY FOR 5 DAYS active Not Available Not Available No t Available ondansetr on HCl 4 mg tablet TAKE 1 TABLET BY MOUTH EVERY 6 HOURS NEEDED FOR NAUSEA 10/09 completed Not Available Not Available Not Available famotidin e 40 mg tablet TAKE 1 TABLET BY MOUTH ONCE DAILY 02/24 completed Not Available Not Available Not Available Medrol (Nigel) 4 mg tablets in a dose pack take as directed 03/03 completed Medrol (Nigel) Oral Tablets, Dose Pack 4 mg;Recor ded Status: Recorded on: 02/25/20 11 11:26AM; Disconti nued Status: Disconti nued on: 03/03/20 11 3:59PM;U ser: [email or web address];P rinted: 02/25/20 11 Not Available Not Available Not Available prednison e 20 mg tablet TAKE 1 TABLET 2 TIMES EACH DAY FOR 5 DAYS 07/19 completed Not Available Not Available Not Available Pyridium 200 mg tablet take 1 tablet (200 mg) by oral route 3 times per day after meals for 14 days 03/17 completed Pyridium Oral Tablet 200 mg;Recor ded Status: Recorded on: 03/03/20 11 4:41PM;U ser: [email or web address];E st. Completi on: 03/17/20 11;Indic ation: Urinary Tract Irritati on - ([id number] ) Not Available Not Available Not Available pseudoeph edrine ER 120 mg tablet,ex tended release TAKE 1 TABLET BY MOUTH EVERY 12 HOURS 10/09 completed Not Available Not Available Not Available valacyclo vir 500 mg tablet Take 1 tablet twice a day by oral route for 5 days. 02/26 completed very sick to her stomach Not Available Not Available Not Available sulfameth oxazole 800 mg-trimet hoprim 160 mg tablet TAKE 1 TABLET 2 TIMES EACH DAY FOR 10 DAYS active Not Available Not Available No t Available meloxicam 7.5 mg tablet TAKE 1 TABLET BY MOUTH ONCE DAILY 08/22 completed Not Available Not Available Not Available levothyro xine 100 mcg tablet TAKE 1 TABLET BY MOUTH ONCE DAILY. PATIENT NEEDS AN APPOINTM ENT active Not Available Not Available No t Available oxycodone -acetamin ophen 5 mg-325 mg tablet TAKE 1 TABLET BY MOUTH EVERY 6 HOURS NEEDED FOR PAIN 10/09 completed Not Available Not Available Not Available Xylocaine Jelly 2 % mucosal apply by oral route 3 times a day as needed for 10 days 05/01 completed Xylocain e Jelly Mucous Membrane Gel 2 %;Record ed Status: Recorded on: 03/22/20 11 9:19AM;U ser: [email or web address];E st. Completi on: 05/01/20 11 Not Available Not Available Not Available Diflucan 100 mg tablet take 1 tablet by oral route daily for 7 days 09/03 completed Diflucan Oral Tablet 100 mg;Recor ded Status: Recorded on: 03/14/20 11 11:44AM; Disconti nued Status: Disconti nued on: 09/04/19 12 10:31AM; User: Caty st. Completi on: 03/21/20 11;Print ed: 03/14/20 11 Not Available Not Available Not Available cephalexi n 500 mg capsule TAKE 1 CAPSULE BY MOUTH EVERY 12 HOURS WITH FOOD 10/09 completed Not Available Not Available Not Available pantopraz ole 40 mg tablet,de layed release TAKE 1 TABLET BY MOUTH ONCE DAILY 02/24 completed Not Available Not Available Not Available triamcino lone acetonide 0.1 % topical ointment apply a thin layer to the affected area(s) by topical route 2 times per day for 7 days 02/24 completed triamcin olone acetonid e Topical Ointment 0.1 %;Record ed Status: Recorded on: 02/15/20 11 10:18AM; Disconti nued Status: Disconti nued on: 02/25/20 11 11:26AM; User: julio c Padilla Completangeles on: 02/22/20 11;Indic ation: Skin Rash - (16.7821 00);Prin mari: 02/15/20 11 Not Available Not Available Not Available Wellbutri n 75 mg tablet 10/06 completed Wellbutr in Oral Tablet 75 mg;Recor ded Status: Recorded on: 03/14/20 08 10:02PM; Disconti nued Status: Disconti nued on: 10/07/19 09 10:14AM; User: [email or web address] Not Available Not Available Not Available Euthyrox 50 mcg tablet TAKE 1 TABLET BY MOUTH ONCE DAILY FOR 90 DAYS 10/09 completed Not Available Not Available Not Available etodolac 400 mg tablet TAKE 1 TABLET BY MOUTH TWICE DAILY active Not Available Not Available No t Available codeine 10 mg-guaife nesin 100 mg/5 mL oral liquid TAKE 10 ML (2 TEASPOON FUL) EVERY 4 TO 6 HOURS NEEDED FOR COUGH active Not Available Not Available No t Available clobetaso l 0.05 % topical ointment APPLY A THIN FILM TO THE AFFECTED AREA OF SKIN 2 TIMES EACH DAY 10/09 completed Not Available Not Available Not Available Nasonex 50 mcg/actua tion Radiant inhale 2 sprays in each nostril by intranas al route once daily 03/03 completed Nasonex Nasal Radiant, Non-Aero jarrett 50 mcg/Actu ation;Re corded Status: Recorded on: 10/07/19 09 10:14AM; Disconti nued Status: Disconti nued on: 03/03/20 11 3:59PM;U ser: [email or web address] Not Available Not Available Not Available doxycycli ne hyclate 20 mg tablet TAKE 1 TABLET BY MOUTH TWICE DAILY 10/09 completed Not Available Not Available Not Available clobetaso l 0.05 % scalp solution APPLY TO THE AFFECTED SCALP AREA 2 TIMES PER DAY IN THE MORNING AND EVENING 08/22 completed Not Available Not Available Not Available fluoxetin e 20 mg capsule TAKE 1 CAPSULE BY MOUTH ONCE DAILY FOR 90 DAYS active Not Available Not Available No t Available fluticaso ne propionat e 50 mcg/actua tion nasal spray,carolann pension SPRAY 1 TIME IN EACH NOSTRIL 1 TIME EACH DAY active Not Available Not Available No t Available Vistaril 50 mg capsule take 1 capsule (50 mg) by oral route q hs 02/24 completed Vistaril Oral Capsule 50 mg;Recor ded Status: Recorded on: 02/15/20 11 10:20AM; User: julio c MagdalenoEst. Completi on: 02/25/20 11;Print ed: 02/15/20 11 Not Available Not Available Not Available amoxicill in 875 mg-potass ium clavulana te 125 mg tablet TAKE 1 TABLET BY MOUTH TWICE DAILY FOR 10 DAYS 10/09 completed Not Available Not Available Not Available clindamyc in phosphate 1 % topical solution APPLY ONE APPLICAT ION TOPICALL Y TWICE A DAY 02/24 completed Not Available Not Available Not Available Bactrim 400 mg-80 mg tablet take 2 tablets by oral route every 12 hours for 10 days 03/24 completed Bactrim Oral Tablet 400-80 mg;Recor ded Status: Recorded on: 03/14/20 11 4:01PM;U ser: [email or web address];E st. Completi on: 03/24/20 11 Not Available Not Available Not Available acyclovir 5 % topical cream APPLY TO THE AFFECTED AREA(S) BY TOPICAL ROUTE up to 5 TIMES PER DAY prn 2023 active Not Available Not Available Not Avai lable Allergy Relief D-24hr 10 mg-240 mg tablet,ex tended release TAKE 1 TABLET 1 TIME EACH DAY 10/09 completed Not Available Not Available Not Available latrice- Echin-gin sen-barre nwt capsule 10/06 completed Latrice -Ginsen- Echin-Ba rrenwt Oral Capsule; Recorded Status: Recorded on: 03/14/20 08 10:04PM; Disconti nued Status: Disconti nued on: 10/07/19 09 10:14AM; User: [email or web address] Not Available Not Available Not Available Prempro 0.3 mg-1.5 mg tablet 1 po qd phoned to [facility] 10/06 completed Prempro Oral Tablet 0.3-1.5 mg;Recor ded Status: Recorded on: 03/14/20 08 10:04PM; Disconti nued Status: Disconti nued on: 10/07/19 09 10:14AM; User: [email or web address] Not Available Not Available Not Available nitrofura ntoin monohydra te/macroc rystals 100 mg capsule TAKE 1 CAPSULE BY MOUTH EVERY 12 HOURS FOR 7 DAYS active Not Available Not Available No t Available Claritin qd active Not Available Not Avai lable Not Available sodium fluoride 1.1 % dental paste APPLY PEA SIZED AMOUNT TO TOOTH BRUSH AND BRUSH TWICE DAILY. DO NOT RINSE FOR AT LEAST 30 MINUTES AFTER active Not Available Not Available No t Available lidocaine 5 % topical ointment APPLY TO AFFECTED AREA(S) BY TOPICAL ROUTE 1-4 TIMES DAILY NEEDED active Not Available Not Available No t Available Vitals Date Recorded Body height Body mass index (BMI) Body weight Systolic blood pressure Diastolic blood pressure Provider Name and Address Organization Details Last Updated DateTime 08/22/2021 160.02 cm 27.1 kg/m2 52348.63 g 118 mm[Hg] 70 mm[Hg] Mae Murphy [place] - [facility] 2 08:51:01 Date Recorded Body height Body mass index (BMI) Body weight Systolic blood pressure Diastolic blood pressure Provider Name and Address Organization Details Last Updated DateTime 10/09/2022 160.02 cm 24.8 kg/m2 30905.93 g 114 mm[Hg] 76 mm[Hg] Mae Murphy [facility] 3 16:29:07 Date Recorded Body height Body mass index (BMI) Body weight Heart rate Oxygen saturation Oxygen saturation in Arterial blood by Pulse oximetry Systolic blood pressure Diastolic blood pressure Provider Name and Address Organization Details Last Updated DateTime 2 160.02 cm 25.3 kg/m2 30356.7 1 g 54 /min 98 % 98 % 120 mm[Hg] 82 mm[Hg] Nereida Davis [facility] 2 11:50:48 Date Recorded Body weight Systolic blood pressure Diastolic blood pressure Provider Name and Address Organization Details Last Updated DateTime 02/25/2024 43276.01 g 112 mm[Hg] 70 mm[Hg] Mae Murphy [facility] 02/25/2024 14:17:13 Date Recorded Body height Provider Name an d Address Organization Details Last Updated DateTime 05/16/2022 160.02 cm Nereida Davis [facility] 05/16 09:43:35 Social History Question Answer Notes LastModified by Organizat ion Details LastModified Time Tobacco Smoking Status Former Smoker Crystal sharif [facility] 04/13/2016 10:11:24 Do You Have An Advance Directive? No Information not available 04/13/2016 Are You Blind Or Do You Have Difficulty Seeing? No Information not available 04/13/2016 Is Blood Transfusion Acceptable In An Emergency? Yes Information not available 04/13/2016 What Is Your Level Of Caffeine Consumption? Moderate [email or web address] Information not available 08/22/2021 How Much Tobacco Do You Chew? None Information not available 04/13/2016 In The 14 Days Before Symptom Onset, Have You Had Close Contact With A Laboratory-confir med COVID-19 While That Case Was Ill? No [email or web address] Information not available 08/22/2021 In The 14 Days Before Symptom Onset, Have You Had Close Contact With A Person Who Is Under Investigation For COVID-19 While That Person Was Ill? No [email or web address] Information not available 08/22/2021 Have You Been To An Area Known To Be High Risk For COVID-19? No [email or web address] Information not available 08/22/2021 Are You Deaf Or Do You Have Serious Difficulty Hearing? No Information not available 04/13/2016 What Type Of Diet Are You Following? REGULAR Information not available 04/13/2016 Which Illicit Or Recreational Drugs Have You Used? Never Information not available 04/13/2016 Have You Processed Blood Or Body Fluids From An Ebola Virus Disease Patient Without Appropriate PPE? No [email or web address] Information not available 08/22/2021 Do You Reside In Or Have You Traveled To An Area Where Ebola Virus Transmission Is Active? No [email or web address] Information not available 08/22/2021 What Is The Highest Grade Or Level Of School You Have Completed Or The Highest Degree You Have Received? WA76671-3 [email or web address] Information not available 05/17/2018 How Many Days Of Moderate To Strenuous Exercise, Like A Brisk Walk, Did You Do In The Last 7 Days? 1 [email or web address] Information not available 05/17/2018 On Those Days That You Engage In Moderate To Strenuous Exercise, How Many Minutes, On Average, Do You Exercise? 1 [email or web address] Information not available 05/17/2018 Have There Been Any Changes To Your Family Or Social Situation? No [email or web address] Information no t available 08/22/2021 How Hard Is It For You To Pay For The Very Basics Like Food, Housing, Medical Care, And Heating? Not Very Hard [email or web address] Information not available 08/22/2021 What Is The Fluoride Status Of Your Home? Fluoridated [email or web address] Information not available 08/22/2021 When Did You Quit Smoking? 16+yearssincelast cigarette [email or web address] Information not available 10/09/2022 Hard Of Hearing Or Deaf In One Or Both Ears? No Information not available 12/09/2019 Have You Recently Or Are You Planning To Travel To An Area With Zika Virus? No Information not available 08/22/2021 Legally Blind In One Or Both Eyes? No Information no t available 12/09/2019 Live Alone Or With Others? With Others Information not available 04/13/2016 Do You Have A Medical Power Of Filter Machine Operator? No [email or web address] Information not available 08/22/2021 What Was The Date Of Your Most Recent Tobacco Screening? 10/09/2022 [email or web address] Information not available 10/09/2022 How Many Children Do You Have? 1 [email or web address] Information not available 08/22/2021 What Is Your Current Pack Years? [id number] Information not available 02/25/2024 Performs Monthly Self-breast Exam? Yes Information no t available 04/13/2016 Do You Use Protection During Sex? No Information not available 05/17/2018 Do You Use Protection Against STDs? No [email or web address] Information not available 08/22/2021 What Is Your Relationship Status? Information not available 04/11/2016 Seat Belts Used Routinely Yes Information not available 04/13/2016 Are You Sexually Active? Yes Information not available 04/13/2016 Smoke Alarm In Home Yes Information not available 12/09/2019 Do You Have Smoke And Carbon Monoxide Detectors In Your Home? Yes [email or web address] Information not available 08/22/2021 At What Age Did You Start Smoking Tobacco? 20 [email or web address] Information not available 02/25/2024 Are You Passively Exposed To Smoke? No [email or web address] Information no t available 08/22/2021 How Much Tobacco Do You Smoke? No Information not available 04/13/2016 General Stress Level Low [email or web address] Information not available 05/17/2018 Do You Use Sunscreen Routinely? Yes Information not available 04/13/2016 Has Tobacco Cessation Counseling Been Provided? No [email or web address] Information not available 08/22/2021 How Many Years Have You Smoked Tobacco? 20 Information not available 04/13/2016 Do You Have Difficulty Walking Or Climbing Stairs? No Information not available 04/13/2016 What Contraceptive Method Was Reported At Start Of This Visit? Female Sterilization [email or web address] Information not available 08/22/2021 Do You Want To Talk About Contraception Or Prevention During Your Visit Today? No - I Do Not Want To Talk About Contraception Today Because I Am Here For Something Else [email or web address] Information not available 10/09/2022 Do You Have Any Future Plans To Get ? No, I Don't Want To Become [email or web address] Information not available 08/22/2021 Sex: Female Functional Status Question Answer Note LastModified by Organizat ion Details LastModified Time How many times per week do you consume alcohol? 5-7 times per week [email or web address] Information not available 08/22/2021 Do you or have you ever used smokeless tobacco? Never used [email or web address] tobacco Information not available 12/09/2019 Are you currently employed? No Information not available 04/13/2016 Do you have transportation difficulties? No [email or web address] Information not available 08/22/2021 Urinary incontinence assessment performed? Yes [email or web address] Information not available 05/17/2018 Are you able to care for yourself? Yes Information n ot available 12/09/2019 Do you have difficulty dressing or bathing? No Information not available 04/13/2016 Do you or have you ever used e-cigarettes or vape? Never used electronic cigarettes Information not available 12/09/2019 What is your exercise level? Occasional Information not available 04/13/2016 Do you use any illicit or recreational drugs? No [email or web address] Information not available 08/22/2021 Do you or have you ever used any other forms of tobacco or nicotine? No [email or web address] Information not available 08/22/2021 What is your level of alcohol consumption? Occasional Information not available 04/13/2016 What is your status? Not [email or web address] Information no t available 08/22/2021 Are you able to walk? YESWOREST [email or web address] Information not available 05/17/2018 Do you have difficulty doing errands alone? 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 [id number] [email or web address] Information not available 08/22/2021 Do you have difficulty concentrating, remembering or making decisions? No Information no t available 04/13/2016 Family History Relationship Description Onset Age of this Age Resolved Age Notes LastModified by Organization Details LastModified Time Father Heart disease Not available 2015 14:13:16 Father Diabetes mellitus Not available 2015 14:13:49 Father Neoplasm of soft tissue Not available 08:45:16 Sister Malignant neoplasm of bone Not available 2015 14:13:25 Sister Family history of breast cancer 45 Not available 2015 14:13:39 Medical History Condition Response Blood Diseases N Hyperthyroidism N Rheumatoid arthritis N Blood Transfusion N amputation N Depression N Pneumonia N Incontinence N Edema N Anxiety Disorder N Obesity N Restless Leg Syndrome N Infertility N Polyps N Carpal Tunnel N Acid Reflux (GERD) N Stroke N Varicosities N Tendonitis N Skin Cancer N Fibromyalgia N Anal Fissure N Irritable Bowel Syndrome N Kidney Disease N Hospitalizations Y Gallstones N Goiter N Acne N Eating Disorder N Gaona's Esophagus N Hypertriglyceridemia N Constipation N Embolism N Deviated Septum N Myocardial Infarction N Asthma N Vertigo N Chicken Pox Y Von Willebrands Disease N Lung Disease N Defects or Inherited Disease N Ovarian Cyst N Anesthesia Complications N Testosterone Deficiency N Interstitial Cystitis N Congenital Anomalies N Hypoglycemia N Blood clot N Cellulitis N Endometriosis N Fracture N Panic Disorder N Schizophrenia N Spina Bifida N Parkinson's Disease N STI N Angina N Thyroid Problems N GI Problems N ADD/ADHD N Anemia N Multiple Sclerosis N Lumbago N Psychiatric Illness N Diabetes N Hyperlipidemia N Syncope N Abuse/Domestic Violence N Attention Deficient Disorder N Ulcerative colitis N Aneurysm N Bronchitis N Heart Disease N Hypertension N Pre-Eclampsia N Suicidal Ideation N Pancreatitis N Other N Atrial Fibrillation N congenital heart disease N Erectile Dysfunction N Skin Lesions N Murmur N Alzheimer's Disease N Migraine Headaches N Tobacco Abuse N Hemorrhoids N Vision or Eye Problems N Arthritis N Cancer Y Crohn's Disease N Hypercholesterolemia N Headaches N Heart Problems N Kidney or Bladder Problems N Vitamin B12 Deficiency N AIDS/HIV N Mitral Valve Disorders N Hepatitis N Thyroid Cancer N Neuropathy N History of DVT N Herniated Disc N Thrombophilias N Breast Cancer N Hernia N Plantar Fasciitis N Hypothyroidism N Breast Problem N Vitamin D Deficiency N Bladder or Kidney Problems N Colorectal Cancer N Concussion N Osteoarthritis N Disc Protrusion N Esophagitis N Abnormal PAP N Mental Illness N Ovarian Cancer N Degenerative Disc Disease N Seizures/Epilepsy N Insomnia N Eczema N Dementia N Cerebrovascular Disease N Depression N Guillain-[place] N Sleep Apnea N Osteoporosis N Gynecological History Statement/Question Response Abnormal Pap N Date of Last Mammogram 05/28/2018 Date of LMP 04/25/2006 STIs/STDs N HPV Vaccine N Current Control Method Menopause Age at Menarche 15 Age at First Child 25 Last Annual Exam/Provider 10/09/22 w/Zoya Rosales [employer]UM[employer] RESOURCE ADVISER Last Lipids October 2015 If Post Menopausal, Age at Menopause 45 Date of Last Colonoscopy 12/20/2015 Most Recent Bone Density Sexually Active? Y Menses Monthly N Date of Last Pap Smear 10/09/2022 Sexual Problems? N LMP Approximate Hormone Replacement Therapy N Obstetrics History GPAL:G 1 P 1 0 0 1 Type Value Full Term 1 Living 1 Total 1 Immunizations Vaccine Type Date Status Note Provider Name and Address Organization Details Recorded Time Influenza, split virus, quadrivalent, preservative 08/23/19 22 cancelled patient objection Rdaha Roslaes, HUMAN RESOURCE ADVISER [address], [place], [address], [place] - [facility] 08/22/2021 10:02:40 zoster recombinant 08/23/19 22 cancelled patient objection Radha Rosales APRN [address], [place], [address], [place] - [facility] 08/22/2021 10:02:40 Influenza, split virus, quadrivalent, preservative 05/17/20 18 cancelled patient objection Not Available [facility]ly [facility] 06/28/2019 03:55:28 COVID-19, mRNA, LNP-S, PF, 100 mcg/0.5mL dose or 50 mcg/0.25mL dose 12/12/19 21 completed Mae sharif [place] - [facility] 08/22/2021 08:44:02 COVID-19, mRNA, LNP-S, PF, 100 mcg/0.5mL dose or 50 mcg/0.25mL dose 01/12/20 21 [place] [facility] 08/22/2021 08:44:08 Past Encounters Encounter ID Performer Location Encounter Start Date Encounter Closed Date Diagnosis/Indication Diagnosis SNOMED-CT Code Diagnosis ICD10 Code Diagnosis Note [id number] [facility] [address] [place] [address] 12/16/2007 00:00:00 [id number] [facility] [address] [place] [address] 10/06/2008 00:00:00 [id number] [facility] [address] [place] [address] 02/14/2011 00:00:00 [id number] [facility] [address] [place] [place] [address] 02/24/2011 00:00:00 [id number] [facility] [address] [place] [address] 02/24/2011 00:00:00 [id number] [facility] [address] [place] [address] 03/03/2011 00:00:00 [id number] [facility] [address] [place] [address] 03/14/2011 00:00:00 [id number] KERRY Kwon [employer]CEAN IMPORT REPRESENTATIVE [address] [place] [address] [address] [address] 04/13/2016 09:39:35 04/13/2016 10:58:05 Routine gynecologic examination done 6789023477 9101 Z01.419 Depression screening 171 606579 Z13.89 Diet education 21870147 Z71.3 Counseling 324317231 Z71 .9 Exercise counsellin g. Patient encouraged to exercise 30 minutes 5 days a week. Examinatio n of blood pressure 364285352 Z01.30 Vaccine de clined by patient [id number] 02 Z28.21 Screening for malignant neoplasm of cervix 279709171 Z12.4 Screening mammography 24 621787 Z12.31 Body mass index 25-29 - overweight 127133283 Z68.29 encouraged diet and exercise [id number] KERRY Kwon [employer]CEAN IMPORT REPRESENTATIVE [address] [place] [address] [address] [place] [id number] 02/09/2017 13:11:17 02/09/2017 13:37:11 Family history of breast cancer 647687713 Z80.3 Sister dx at age 45 Mastodynia of left breast 9240677414 8987330 N64.4 Encouraged MMG - pt declinedSh e is open to breast US Fibrocysti c disease of breast 24336967 N60.19 Encouraged to decrease caffeine intake and to start taking Vitamin E 400 IU BID. [id number] KERRY Kwon [employer]CEAN IMPORT REPRESENTATIVE [address] [place] [address] [address] [place] [address] 04/16/2017 10:06:39 04/16/2017 12:46:15 Routine gynecologic examination done 9533662309 9101 Z01.419 Depression screening 171 134927 Z13.89 PHQ-9 completed today. Diet education 78106877 Z71.3 Counseling 541864553 Z71 .9 Exercise counselewa sousa. Patient encouraged to exercise 30 minutes 5 days a week. Examinatio n of blood pressure 818528920 Z01.30 Vaccine de clined by patient [id number] 02 Z28.21 Pt declined flu vaccine today. Body mass index 25-29 - overweight 222285259 Z68.25 Screening for malignant neoplasm of cervix 119894642 Z12.4 Family his tory of breast cancer 044048405 Z80.3 Mastodynia of left breast 1466364829 2369109 N64.4 Keep recommeded f/u appt for left breast U/S 08/21/16.St art Vit E 400 IU BID [id number] KERRY Jon[place] [place] [address] 02/20/2018 09:46:40 02/20/2018 10:33:32 Inflamed seborrheic keratosis 008376798 L82.0 8 mm punch excision at next visit Pigmented skin lesion 20 0701039 L81.9 6 mm punch on right medial knee Neoplasm o f uncertain behavior of skin 03105548 D48.5 3 mm punch on left zoroastrian ( due to patient's history) - clinically consistent with actinic keratosis. [id number] KERRY [place] [address] [place] [address] 03/13/2018 09:59:58 03/13/2018 11:32:22 Neoplasm of uncertain behavior of skin 25094296 D48.5 complete 3 mm punch on left zoroastrian and 6 mm punch excision on right knee Inflamed s eborrheic keratosis 983990690 L82.0 8 mm punch on right thigh [id number] KERRY [place] [address] [place] [address] 04/03/2018 10:38:13 04/03/2018 11:26:42 Removal of suture 91056575 Z48.02 patient tolerated well Verruca vulgaris 4580388 3 B07.9 Dermatofibroma 857882259 D23.9 Actinic keratosis 411341 007 L57.0 treated with Cryo in clinic today [id number] KERRY Kwon OCEAN IMPORT REPRESENTATIVE [address] [place] [address] [place] [address] 05/17/2018 14:03:02 05/17/2018 14:45:31 Routine gynecologic examination done 4725724339 9101 Z01.419 Depression screening 171 148218 Z13.89 PHQ-9 completed today. Diet education 20880734 Z71.3 Counseling 937413992 Z71 .82 Exercise counsellin g. Patient encouraged to exercise 30 minutes 5 days a week. Examinatio n of blood pressure 084046534 Z01.30 Vaccine de clined by patient 7887465638 02 Z28.21 Pt declined flu vaccine today. Body mass index 25-29 - overweight 285334868 Z68.25 encouraged diet and exercise Screening for malignant neoplasm of cervix 317489206 Z12.4 Patient advised that I will follow up with results. Family his tory of breast cancer 802385883 Z80.3 Mastodynia of left breast 5512743217 4703377 N64.4 Occasional left breastMuch improved from previous sx. Screening mammography 24 031691 Z12.31 Would like to have her MMG In [place], [place] She will call Sunday with the name of the facility. Nocturia 538803217 R35.1 Discussed keeping a daily urine dairyDiscu ssed Kegal exercises and pelvic floor exercise sheet given. [id number] KERRY [place] [address] [place] [address] 12/17/2018 13:37:47 12/17/2018 15:01:08 Neoplasm of uncertain behavior of skin 88019485 D48.5 Likely an inflamed benign keratosis. However, due to non resolve patient and I elected to complete a shave biopsy on return. [id number] My Hutchinson APRN [address] [place] [address] 12/09/2019 10:00:27 12/09/2019 12:12:26 Neoplasm of uncertain behavior of skin 36469963 D48.5 [id number] My Hutchinson APRN [address] [place] [address] 03/08/2021 10:09:25 03/08/2021 11:09:37 Neoplasm of skin 050033506 D49.2 secondary changes today. She prefers to pursue a biopsy as she has applied topical treatment without improvemen t. [id number] My Hutchinson APRN [address] [place] [address] 03/29/2021 09:35:05 03/29/2021 10:56:00 Eruption 587515417 R21 return for biopsy when area is pink and inflamed Neoplasm of skin 0373259 04 D49.2 6 mm on left shoulder today to rule out BCC [id number] My Hutchinson APRN [place] [address] [place] [address] 04/12/2021 10:15:28 04/12/2021 11:04:14 Removal of suture 64345364 Z48.02 patient tolerated well Superficia l basal cell carcinoma 293153708 C44.91 excised Changing s hape of pigmented skin lesion 030892538 L98.8 left posterior leg [id number] My Hutchnison APRN [address] [place] [address] 04/28/2021 08:30:14 04/28/2021 09:22:20 Changing shape of pigmented skin lesion 606944289 L98.8 left posterior leg shave completed today [id number] Stacey Su, HUMAN RESOURCE ADVISER [place] [place] [address] 06/09/2021 09:07:11 06/09/2021 09:58:00 Acute sinusitis 93993809 J01.90 [id number] KERRY [place] [address] [place] [address] 07/19/2021 15:16:03 07/19/2021 16:16:29 Skin irritation 025144483 L30.9 patient offered reassuranc e that it does appear to be skin cancer, rather irritation [id number] KERRY Kwon OCEAN IMPORT REPRESENTATIVE [address] [place] [address] [place] [address] 08/22/2021 08:37:22 08/22/2021 09:18:26 Routine gynecologic examination done 8061742068 9101 Z01.419 Depression screening 171 630155 Z13.89 PHQ-9 completed today. Diet education 11644231 Z71.3 Counseling 956847713 Z71 .82 Exercise counselewa esparza Patient encouraged to exercise 30 minutes 5 days a week. Examinatio n of blood pressure 057806505 Z01.30 Vaccine de clined by patient 7130851970 02 Z28.21 Pt declined flu vaccine today. Screening for malignant neoplasm of cervix 924967298 Z12.4 Z11.3 Z01.419 Patient advised that I will follow up with results. Screening for malignant neoplasm of colon 399804404 Z12.11 Body mass index 25-29 - overweight 059724005 Z68.27 encouraged diet and exercise Family his tory of breast cancer 722753224 Z80.3 Screening mammography 24 969147 Z12.31 States she will NEVER have another. States the facility popped her implant Vulval irritation 445299 003 N90.89 Apply cream as directed. [id number] KERRY Kwon OCEAN IMPORT REPRESENTATIVE [address] [place] [address] [place] [address] 10/09/2022 15:58:37 10/09/2022 16:46:16 Routine gynecologic examination done 4065590203 9101 Z01.419 Depression screening 171 822342 Z13.89 PHQ-9 completed today. Diet education 18648867 Z71.3 Counseling 366528249 Z71 .82 Exercise counselewa esparza Patient encouraged to exercise 30 minutes 5 days a week. Examinatio n of blood pressure 195741647 Z01.30 Vaccine de clined by patient 6411148804 02 Z28.21 Pt declined flu vaccine today. Screening for malignant neoplasm of cervix 894259885 Z12.4 Z11.3 Z01.419 Patient advised that I will follow up with results. Screening for malignant neoplasm of colon 742117016 Z12.[address] Acosta trevizo in 2025 Family his tory of breast cancer 529802517 Z80.3 Screening mammography 24 121688 Z12.31 States she will NEVER have another. States the facility popped her implant [id number] [facility] [address] [place] [address] 11/30/2021 11:23:14 11/30/2021 12:20:04 Loss of hair 840106313 L65.9 Pattern of hair loss suggestive of female pattern hair loss vs TE. [id number] [facility] [address] [place] [address] 05/16/2022 09:08:24 05/16/2022 10:17:18 History of Malignant melanoma 230677297 Z85.89 in situ left posterior lower leg. Melanocytic nevus 846922 001 D22.9 continue to monitor for changes [id number] KERRY Kwon OCEAN IMPORT REPRESENTATIVE [address] [facility] [place] [address] 02/25/2024 14:00:44 02/25/2024 15:52:10 Dysuria 80321306 R30.0 Increase fluidsAvoi d soda and teaWill send urine for culture and call with results.If urine culture is positive, will call in an antibiotic . Vaginal irritation 02906 6004 N89.8 Lesion of vulva 19764657 6 N90.9 Health Concerns Section Related Observation LastModified by Organization Detai ls LastModified Time None Recorded Concern Status LastModified by Organization Details LastModified Time None Recorded Advance Directives Directive N: Payers Insurance Date Sequence Insurance Name Policy Number Policy Patel Covered Member ID Patel Member ID Guarantor Name 02/25/2024 1 [place] [id number] 1 No Rankin [id number] AB No Rankin 02/25/2024 1 [place] [id number] 1 Iain Rankin [id number] AB No Rankin 10/09/2022 1 [place] [id number] Iain Rankin [id number] No Rankin Notes Date Note Type Note Provider Name and Address Organization Details Recorded Time 08/22/2021 text/html Annual - MOBRepo rted bypatient.History:Las t annual exam: 05/17/2018; no gynecologic complaints; no change in interval history Current Contraception:Satisfi ed with current contraception; Monogamous relationship; Postmenopausal Preventive measures:Encourage self breast examination; Encourage regular exercise;Needs to schedule mammogram(refuses) No is a/an 60 year old who presents today as an established patient for an annual exam. Her previous annual exam was in 2018, with myself. She is naturally menopausal. She has been menopausal since age 45. She has previously used HRT. She is stillsexually activewith the same partner as last visit.Other than needing a preventive exam, she is complaining of vaginal irritation between her vaginal opening and her rectum. States this has been an issue for the past few months. In addition, she is concerned about occasional vaginal odor. States this is not an issues all the time, but she does notice it. Radha Rosales, HUMAN RESOURCE ADVISER [address], [place], [address], [place] - [facility] 08/22/2021 10:06:39 11/30/2021 text/html No is a 60 year old female that returns to Dermatology today for concerns ofhairloss. She has noticed the hair loss occurring for 2-3 months. She has a history of hypothyroid.SHe notes that her PCP ordered blood work and she hasn't gotten the results yet.She notes losing 14 lbs since June. My Hutchinson, HUMAN RESOURCE ADVISER [address], [place], [address], [place] - [facility] 11/30/2021 12:24:02 05/16/2022 text/html No is a 61 year old female that returns to dermatology today for afull body skin check. room 3 BS My HutchinsonKERRY [address], [place], [address], [facility] - [facility] 05/16/2022 10:09:29 10/09/2022 text/html Annual - MOBRepo rted bypatient.History:Las t annual exam: 08-22-21; no gynecologic complaints; no change in interval history Current Contraception:Monogam ous relationship; Postmenopausal Preventive measures:Encourage self breast examination; Encourage regular exercise;Needs to schedule mammogram(refuses mammo) No is a/an 61 year old who presents today as an established patient for an annual exam. Her previous annual exam was in 2021, with myself. She is naturally menopausal. She has been menopausal since age 45. She has previously used HRT. She is still sexually active with the same partner as last visit. Other than needing a preventive exam, she denies other problems or concerns. Radha Rosales APRN [address], [place], [address], [facility] - [facility] 10/09/2022 16:44:45 02/25/2024 text/html DysuriaReported bypatient.Quality:bur roman;pressure;pain Severity:severe; pain level 7/10 Duration:constant Timing:gradual Context:no prior history of STDs; no known exposure to STD Modifying Factors:nothing gives relief; nothing makes it worse Associated Symptoms:no fever; no rash on genitals;blister(s) on genitals;hesitancy;bl ood in the urine;smaller urine stream;vaginal discharge; vulva irritation Radha Rosales APRN [address], [place], [address], [facility] - [facility] 02/25/2024 14:35:34 OBGyn Episode No OBEpisode recorded.
--- OUTSIDE RECORDS SUMMARY | 2024-11-24 11:28 | XMS_ITS | Clinical Summary ---
Author Organization [facility] Address [address] [id number] Care Team Providers Care Pearl Technician Name Role Phone Edwina Su KERRY Primary Care Provider [phone] Allergies Active Allergy Reactions Criticality Noted Date Comments Sulfa Drugs Nausea,Vomiting 2023 Medications fluticasone (Flonase) 50 MCG/ACT nasal spray Administer 1 spray into each nostril 1 (one) time each day. Active simethicone (Mylicon) 20 mg/0.3 mL drops Take 1.2 mL (80 mg) by mouth 4 (four) times a day if needed for flatulence. 30 mL 4 Active Additional Information Patient not taking.Reported on 04/23/2024 FLUoxetine (PROzac) 20 MG capsule Take 1 capsule (20 mg) by mouth 1 (one) time each day. 60mg TDD. Crush and take with liquid. 30 capsule 4 Active Additional Information Patient not taking.Reported on 04/23/2024 FLUoxetine (PROzac) 40 MG capsule Take 1 capsule (40 mg) by mouth 1 (one) time each day. 60mg TDD. Crush and take with liquid. 30 capsule 4 Active ondansetron (Zofran) 4 MG tablet Take 1 tablet (4 mg) by mouth every 6 (six) hours if needed for nausea. Crush and take with liquid 20 tablet 4 Active Additional Information Patient not taking.Reported on 04/23/2024 HYDROcodone-shae taminophen (Hycet) 7.5-325 MG/15ML solution Take 15 mL (7.5 mg of hydrocodone) by mouth every 6 (six) hours if needed for severe pain (pain). 420 mL 4 Active Additional Information Patient not taking.Reported on 04/23/2024 ondansetron (Zofran) 4 MG tablet Take 1 tablet (4 mg) by mouth every 8 (eight) hours if needed for nausea or vomiting. Crush and take with liquid 20 tablet 4 Active Additional Information Patient not taking.Reported on 04/23/2024 acarbose (Precose) 25 MG tablet Take 1 tablet (25 mg) by mouth 3 (three) times a day with meals. 90 tablet Active loperamide (Imodium A-D) 2 MG tablet Take 1 tablet (2 mg) by mouth if needed for diarrhea. 30 tablet Active polyethylene glycol (MiraLax) 17 GM/SCOOP powder Take at 6pm - day before procedure. Mix Miralax 238 gram bottle with 64 ounces of Gatorade and refrigerate. Drink 8 ounces every 15 minutes starting at 6pm until completete. 238 g Active bisacodyl (Dulcolax) 5 MG EC tablet Day before procedure at 4pm take 4 tablets with 8 oz of clear liquid. SSICOLON 4 tablet 4 Active Active Problems Problem Noted Date Diagnosed Date Hiatal hernia with gastroesophageal reflux 12/31 Hiatal hernia 10/31/2023 Allergic rhinitis due to allergen 08/24/2023 Anxiety 08/24/2023 Gastroesophageal reflux disease 08/24/2023 Hypothyroidism 07/18/2023 Irritation of vulva 10/09/2022 Non-Hodgkin's lymphoma 06/11/2004 Overview (08/24/2023): remission Immunizations Immunization Administration Dates Next Due Moderna COVID-19 Vaccine (Chemical Processing Supervisor) 12+ years 08/2020 Social History Tobacco Use Types Packs/Day Years Used Date Smoking Tobacco: Former Cigarettes 1 25 0 06/11/1980 - 06/11/2005 Smokeless Tobacco: Never Tobacco Cessation:Counseling Given: Not Answered Alcohol Use Standard Drinks/Week Comments Yes 7 (1 standard drink = 0.6 oz pur e alcohol) PHQ-2 Answer Date Recorded Patient Health Questionnaire-2 Score 0 08/24/2023 CAGE ASSESSMENT Answer Date Recorded Cage unable to access Not on file 01/01/2024 Cage max number of drinks Not on file 2023 Cage Beverages a week Not on file 01/01/2024 Have you ever felt you should CUT down on your d rinking? 0 01/01/2024 Have you been ANNOYED by people criticizing your drinking? 0 01/01/2024 Have you felt GUILTY about your drinking? 0 01/01/2024 Have you had a drink first t annika in the morning (EYE-WAREHOUSE ANALYST) to steady your nerves or to get rid of a hangover? 0 01/01/2024 CAGE Questionnaire Score 0 024 Comments No Sex and Gender Information Value Date Recorded Sex Assigned at Female 01/01/2024 5:56 AM EDT Legal Sex Female 10:36 AM EDT Gender Identity Female 01/01/2024 5:56 AM EDT Sexual Orientation Not on file Last Filed Vital Signs Vital Sign Reading Time Taken Comments Blood Pressure 114/54 05/12/2024 2:01 PM EST Pulse 57 05/12/2024 2:01 PM EST Temperature 36.7 C (98 F) 05/12/2024 1:29 PM EST Respiratory Rate 16 05/12/2024 2:01 PM EST Oxygen Saturation 98% 05/12/2024 2:01 PM EST Inhaled Oxygen Concentration - - Weight 62.6 kg (138 lb 0.1 oz) 05/12/2024 11:29 AM EST Height 162.6 cm (5' 4 ) 05/12/2024 11:29 AM EST Body Mass Index 23.69 05/12/2024 11:29 AM EST Plan of Treatment Health Maintenance Due Date Last Done Comments [facility]-HIV Screening 1960 [facility]-Hepatitis C Screening 1960 [facility]-/Child/Adol SDOH Screenings 1960 [facility]- SDOH Screenings 1980 [facility]-Adult SDOH Screenings 1980 [facility]-DTaP,Tdap,and Td Vaccines (1 - Tdap) 1981 [facility]-Pneumococcal Vaccine: 50+ Years (1 of 2 - PCV) 1981 [facility]-Zoster Vaccines (1 of 2) 1981 CT Colonography 12/07/2007 FIT-DNA 12/07/2007 FIT 12/07/2007 FOBT 12/07/2007 Sigmoidoscopy 12/07/2007 [facility]-Pap Smear 05/30/2010 05/30/2007, 02/09, 07/05/2005, Additional history exists [facility]-Cervical Cancer Screening 05/30/2012 [facility]-HPV/Cotest 05/30/2012 05/30/2007, 02/09, 07/05/2005, Additional history exists [facility]-Breast Cancer Screening 2012 [id number] Vaccine ( season) 2024 01/11/2021, 12/21/2020, 11/20/2020 [facility]-Depression Screening 08/23/2024 08/24/2023 [facility]-Influenza Vaccine (Season Ended) 2025 Colonoscopy 05/10/2034 05/12/2024 [facility]-Colorectal Cancer Screening 05/10/2034 [facility]-RSV Vaccine: 60+ Years or (1 - 1-dose 75+ series) 2037 HPV Vaccines Aged Out No longer eligi ble based on patient's age to complete this topic [facility]-HIB Vaccines Aged Out No longer e ligible based on patient's age to complete this topic [facility]-Hepatitis A Vaccines Aged Out No longer eligible based on patient's age to complete this topic [facility]-IPV Vaccines Aged Out No longer e ligible based on patient's age to complete this topic [facility]-Rotavirus Vaccines Aged Out No lo nger eligible based on patient's age to complete this topic Medical Devices Implanted Type Area Pension Manager Device Identifier Shelf Expiration Date Model / Serial / Lot Mesh Phasix St [id number] - [id number] Implanted:Qty: 1 on 01/01/2024 by Marco Wolf MD at [facility] N/A: Abdomen [id number] 03/08/2026 [id number] / / [id number] Procedures Procedure Name Priority Date/Time Associated Diagnosis Comments COLONOSCOPY Routine 05/12/2024 1:27 PM EST Screening due CYTO DATA CONVERSION Routine 05/30/2007 12:00 AM EST from Last 3 Months or Most Recently Relevant to Health Maintenance Results * Colonoscopy (05/12/2024 1:27 PM EST) Anatomical Region Laterality Modality Endoscopy Narrative 05/12/2024 1:37 PM EST Table formatting from the original result was not included. Impression: Scattered diverticulosis of mild severity in the sigmoid colon Normal. Recommendations Repeat screening colonoscopy in 10 years, due: 05/10/2034 Indication Order Indication: Screening due Medications midazolam (Versed) injection 6 mg fentaNYL (Sublimaze) injection 150 mcg (Totals for administrations occurring from 1235 to 1321 on 05/12/24) Staff Staff Role Iker West MD Proceduralist Anna Muse, RN Endo Nurse Fletcher Vogel RN Endo Nurse Jordan Chan Endo [place] Preprocedure A history and physical has been performed, and patient medication allergies have been reviewed. The patient's tolerance of previous anesthesia has been reviewed. The risks and benefits of the procedure and the sedation options and risks were discussed with the patient. All questions were answered and informed consent obtained. Details of the Procedure The patient underwent moderate sedation, which was administered by the endoscopist. The patient's blood pressure, heart rate, level of consciousness, oxygen, respirations and ETCO2 were monitored throughout the procedure. A digital rectal exam was performed. A perianal exam was performed. The scope was introduced through the anus and advanced to the terminal ileum. Retroflexion was performed in the rectum. The quality of bowel preparation was evaluated using the [place] Bowel Preparation Scale with scores of: right colon = 2, transverse colon = 2, left colon = 2. The total BBPS score was 6. Bowel prep was adequate. The patient experienced no blood loss. The procedure was not difficult. The patient tolerated the procedure well. There were no apparent adverse events. Patient reassessed immediately prior to sedation and felt to be medically appropriate to proceed as planned. Moderate (conscious) sedation was personally administered by the endoscopist. The following parameters were monitored: oxygen saturation, heart rate, blood pressure, and response to care. Total physician intra-service time was indicated on the nursing documentation and was 50 minutes. An independent trained observer (Anna Muse RN) was present and continuously monitored the patient. Attestation I personally performed the entire procedure Events Procedure Events Event Event Time ENDO SCOPE IN TIME 05/12/2024 12:49 PM ENDO CECUM REACHED 05/12/2024 1:13 PM ENDO SCOPE OUT TIME 05/12/2024 1:21 PM Specimens No specimens were documented in this log. Findings Few small, scattered diverticula of mild severity with no inflammation in the sigmoid colon All observed locations appeared normal. Exam otherwise normal including retroflexion. Iker West MD GI PROCEDURE ORDERABLES Tari l Result * Cytology (05/30/2007 12:00 AM EST) 05/30/2007 05/31/2007 5:0 8 PM EST Narrative SUNQUEST - 06/14/2007 8:40 AM EST [facility] MR #: [id number] [facility] [address] [place], [place] [address] 1960 (Age: 46) FW Collect Date: 05/30/2007 00:00 Receipt Date: 05/31/2007 17:08 Page 1 DEPARTMENT OF PATHOLOGY AND LABORATORY MEDICINE CYTOPATHOLOGY REPORT Email: [email or web address] sale to [email or web address] [id number] ATTENDING MD/Practitioner: Chanel Cardoso MD Service: PAT Location: OUTS Reported: 06/14/2007 08:40 Collected: 05/30/2007 00:00 INTERPRETATION A. THIN PREP (CERVICAL/VAGINAL): NEGATIVE FOR INTRAEPITHELIAL LESION OR MALIGNANCY. PARAKERATOSIS. INFLAMMATORY CHANGE. SATISFACTORY FOR EVALUATION; ENDOCERVICAL/ TRANSFORMATION ZONE COMPONENT PRESENT. Slide scanned and imaged by [employer] ThinPrep Imaging System with manual review of all selected wen. Cervical/vaginal cytology is a screening test primarily for squamous cancers and precursors and has associated false negative and positive results. New technologies such as liquid based sampling may decrease but will not eliminate all false negative results. Regular screening and follow-up of unexplained clinical signs and symptoms are recommended to minimize false negative results. Electronically Signed Out YODIT Lunsford(ASCP) Sofía Thomas MD Cervical cytology is a screening test primarily for squamous cancers and precursors and has associated false negative and positive results. New technologies such as liquid based sampling may decrease but will not eliminate all false negative results. Regular screening and follow-up of unexplained clinical signs and symptoms are recommended to minimize false negative results. Please see the ASCCP website (www.asccp.org) for followup recommendations. If HPV testing was requested, correlation with the results is suggested (please call Microbiology at [phone] for results). CLINICAL INFORMATION: Menstrual History: {Not Provided} Date of Last Menstrual Period: 05/16 SPECIMEN DESCRIPTION: A: THIN PREP (CERVICAL/VAGINAL) THIN PREP PROCESS CELLULAR ENHANCEMENT ICD: V76.2 CERVIX, SPECIAL SCREENING FOR MALIGNANT NEOPLASM 622.2 LEUKOPLAKIA OF CERVIX (HYPERKERATOSIS CERVIX) F: A; RT IMAGE 13239, 30938 C\V (PO) SNOMED CODES: A; E0D236 [id number] M-[id number] [id number] M-[id number] M-[id number] In cases where a pathologist has signed out the report, the service has been rendered in part by a resident. The signing pathologist has performed and is responsible for the reported pathologic evaluation. us Historical Provider MD LAB PATHOLOGY ORDERABLES Final Result [employer] from Last 3 Months or Most Recently Relevant to Health Maintenance Insurance CRUZ Advance Directives * Full Code (Latest Code Status on File) Date Activated Date Inactivated Comments 01/01/2024 9:55 AM 01/02/2024 7:35 PM Question Answer Comments Patient has decision-making capacity? Yes Care Teams Pearl Technician Relationship Specialty Start Date End Date Edwina Su APRN [address] [place] [address] PCP - General 07/26/23
== END 2024-11-21 23:59 | disposition home or self-care (01) ==
LOC: LAB.DROPOF 11-24 11:25
PROVIDERS: PCP Nurse Practitioner Family; Visit Provider Nurse Practitioner Family
DX: R30.0 Dysuria (principal)
CPT/HCPCS: 87086